=== PATIENT | female | born 1945 | race African-American/Black ===

== ENCOUNTER 2022-10-21 17:02 | Emergency (ER) | payer BC, OTHER ==
[2022-10-21 17:30] VITALS: BP_SYST 124; PULSE 70; RESP 18; TEMP 98; O2SAT 98
--- NOTE | 2022-10-21 19:30 | NUR ---
per MD chart, pt was seen at 1800
--- NOTE | 2022-10-21 19:30 | NUR ---
Pt from home BIB sister for c/o mech fall at 1100 today. Pt tripped in hole, unwitnessed and unk head trauma. reporting bilateral shoulder pain, headache and neck pain. pt in wheelchair, A&O X3 and following commands.
[2022-10-21] MEDS ORDERED: OXYCODONE/ACETAMINOPHEN 5-325 TABLET PO ONE (19:45)
[2022-10-21] MEDS ORDERED: KETOROLAC TROMETHAMINE 15 MG VIAL IM ONE (19:45)
[2022-10-21] MEDS ORDERED: ACET325T PO (19:56)
[2022-10-21] MEDS ORDERED: NAPR-1172 PO (19:56)
[2022-10-21] MEDS ORDERED: [UNRECOGNIZED DRUG - CODE] PO (19:57)
[2022-10-21 20:17] VITALS: BP_SYST 124; PULSE 70; RESP 18; TEMP 98; O2SAT 98
--- NOTE | 2022-10-21 21:08 | NUR ---
Patient given written and verbal discharge instructions and verbalizes understanding. ER Dr. Dhaliwal discussed with patient the results and treatment provided. Patient in stable condition. ID arm band removed. Rx of tylenol, aspirin, naproxen, given. Patient educated on pain management and to follow up with PMD. Pain Scale 0. Opportunity for questions provided and answered. Medication side effect fact sheet provided.
== END 2022-10-21 20:17 | disposition home or self-care (01) ==
LOC: SED 17:02
DX: S06.0X9A Concussion with loss of consciousness of unspecified duration, initial encounter (principal); S43.401A Unspecified sprain of right shoulder joint, initial encounter; S43.402A Unspecified sprain of left shoulder joint, initial encounter; E11.9 Type 2 diabetes mellitus without complications; Z85.841 Personal history of malignant neoplasm of brain; Z79.899 Other long term (current) drug therapy; W18.40XA Slipping, tripping and stumbling without falling, unspecified, initial encounter; Y93.89 Activity, other specified; Y92.89 Other specified places as the place of occurrence of the external cause; Y99.8 Other external cause status
CPT/HCPCS: 99285; 70450; 76376; 96372; J1885